=== PATIENT | male | born 1975 | race Caucasian/White ===

== ENCOUNTER → 2016-09-07 | Outpatient (CLI) | payer BC ==
[2016-09-07 16:53] LABS: ALT 44 U/L (21-72); AST 29 U/L (17-59); Anion Gap 12 mmol/L; Blood Urea Nitrogen 11 mg/dL (9-20); Calcium 9.9 mg/dL (8.4-10.2); Carbon Dioxide 29 mmol/L (22-30); Chloride 101 mmol/L (98-107); Creatine Kinase 57 U/L (55-170); Glucose 86 mg/dL (74-99); Iron 115 ug/dL (49-181); LDH 425 U/L (313-618); Non-African American GFR(MDRD) >60 (>60 ml/min/1.73 sqM); Potassium 3.9 mmol/L (3.5-5.1); Sodium 142 mmol/L (137-145)
[2016-09-07 17:03] LABS: % Iron Saturation 31.3 % (20-50); Rheumatoid Factor, Qnt <9 IU/mL (<12); Total Iron Binding Capacity 368 ug/dL (261-462)
== END | disposition home or self-care (01) ==
LOC: LABWHC1 15:57
PROVIDERS: ATTEND Internal Medicine
DX: E29.1 Testicular hypofunction (principal); E78.4 Other hyperlipidemia; R07.9 Chest pain, unspecified
CPT/HCPCS: 36415; 80048; 82085; 82550; 82728; 83540; 83550; 83615; 84450; 84460; 84484; 85379; 86038; 86431

== ENCOUNTER → 2017-03-25 | Outpatient (CLI) | payer BC ==
--- NOTE | 2017-03-25 16:18 | CT ---
EXAMINATION TYPE: CT heart w calcium score DATE OF EXAM: 03/25/2017 COMPARISON: NONE HISTORY: Screening for cardiovascular disorder. 213.9 CT DLP: 51.9 mGycm Automated exposure control for dose reduction was used. CT CALCIUM SCORING Coronary calcium is a marker for plaque (fatty deposits) in a blood vessel or atherosclerosis (harden ing of the arteries). The presence and amount of calcium detected in a coronary artery by the CT sca n, indicates the presence and amount of atherosclerotic plaque. These calcium deposits appear years before the development of heart disease symptoms such as chest pain and shortness of breath. A calcium score is computed for each of the coronary arteries based upon the volume and density of th e calcium deposits. This can be referred to as your calcified plaque burden. It does not correspond directly to the percentage of narrowing in the artery but does correlate with the severity of the un derlying coronary atherosclerosis. PROCEDURE TECHNIQUE - Prospective Gating was used. Slice thickness: 3mm. Density threshold (HU): 130, Pixel threshold: 3, Algorithm: discrete. RESULTS Region: LM Calcium Score ([place]): 0 Volume (mm3): 0 Mass (g): 0 Region: RCA Calcium Score ([place]): 0 Volume (mm3): 0 Mass (g): 0 Region: LAD Calcium Score ([place]): 0 Volume (mm3): 0 Mass (g): 0 Region: CX Calcium Score ([place]): 0 Volume (mm3): 0 Mass (g): 0 Region: PDA Calcium Score ([place]): 0 Volume (mm3): 0 Mass (g): 0 Total: Calcium Score ([place]): 0 Volume (mm3): 0 Mass (g): 0 TOTAL CALCIUM SCORE: 0 OTHER: 0 IMPRESSION: Calcium Score: 0 Implication: No identifiable plaque. Risk of Coronary Artery Disease: Very low, generally less than 5%.
== END | disposition home or self-care (01) ==
LOC: RADCTMAIN 15:41
PROVIDERS: ATTEND Internal Medicine Interventional Cardiology
DX: R07.89 Other chest pain (principal)
CPT/HCPCS: 75571

== ENCOUNTER → 2019-09-06 | Outpatient (CLI) | payer BC ==
--- NOTE | 2019-09-06 08:36 | US ---
EXAMINATION TYPE: US abdomen complete DATE OF EXAM: 09/06/2019 COMPARISON: NONE CLINICAL HISTORY: R10.9 Abdominal Pain. Pain EXAM MEASUREMENTS: Liver Length: 16.8 cm Gallbladder Wall: .3 cm CBD: .3 cm Spleen: 9.9 cm Right Kidney: 10.5 x 3.6 x 5.3 cm Left Kidney: 10.5 x 4.9 x 4.6 cm Pancreas: Obscured by bowel gas Liver: wnl Gallbladder: wnl Evidence for sonographic Nicholson's sign: No CBD: wnl Spleen: wnl Right Kidney: wnl Left Kidney: wnl Upper IVC: wnl Abd Aorta: wnl IMPRESSION: 1. Normal abdomen ultrasound
== END ==
LOC: RADUSWWP 07:03
PROVIDERS: ATTEND Internal Medicine
DX: R10.9 Unspecified abdominal pain (principal)
CPT/HCPCS: 76700

== ENCOUNTER 2020-06-25 09:00 | Day surgery (SDC) | payer BC ==
[2020-06-24 08:24] VITALS: BMI 23.6
[~2020-06-25 09:00] MED LIST: LACTATED RINGERS 1,000 ML IV SCH
[2020-06-25] MEDS ORDERED: LACTATED RINGERS 1,000 ML IV ONE ×2 (09:12)
[2020-06-25 09:30] VITALS: RESP 16; TEMP 97.7
[2020-06-25] MEDS ORDERED: PROPOFOL 10 MG/ML 20 ML VIAL IV ONE (09:58)
--- NOTE | 2020-06-25 10:01 | P.GSHP ---
History of Present Illness H&P Date: 06/25/20 Chief Complaint: GERD 45-year-old male with history of acid reflux and mild left upper quadrant pain for the last year or so. Symptoms fairly well controlled with daily antiacid therapy. No dysphagia. No rectal bleeding or melena. No previous workup. Past Medical History Past Medical History: GERD/Reflux History of Any Multi-Drug Resistant Organisms: None Reported Past Surgical History: Orthopedic Surgery Additional Past Surgical History / Comment(s): RIGHT SHOULDER SX Past Anesthesia/Blood Transfusion Reactions: No Reported Reaction Smoking Status: Never smoker - Past Family History Father Family Medical History: Cancer Medications and Allergies Home Medications Medication Instructions Recorded Confirmed Type Omeprazole 20 mg PO DAILY 06/24/20 06/25/20 History Allergies Allergy/AdvReac Type Severity Reaction Status Date / Time No Known Allergies Allergy Verified 06/25/20 09:14 Surgical - Exam Vital Signs Temp Pulse Resp BP Pulse Ox 97.7 F 80 16 120/80 98 06/25/20 09:13 06/25/20 09:13 06/25/20 09:13 06/25/20 09:13 06/25/20 09:13 Physical exam: General: Well-developed, well-nourished HEENT: Normocephalic, sclerae nonicteric Abdomen: Nontender, nondistended Extremities: No edema Neuro: Alert and oriented Assessment and Plan (1) GERD (gastroesophageal reflux disease) Narrative/Plan: Will proceed with upper endoscopy at this time. Current Visit: Yes Status: Acute Code(s): K21.9 - GASTRO-ESOPHAGEAL REFLUX DISEASE WITHOUT ESOPHAGITIS SNOMED Code(s): 953104366
--- NOTE | 2020-06-25 10:10 | P.PCN ---
Date of Procedure: 06/25/20 Procedure(s) Performed: Preoperative Dx: GERD Postoperative Dx: Minimal gastritis, moderate size hiatal hernia Procedure: EGD with Bx Anesthesia: Sedation Endoscopist: Dr. Leo Specimens: Antrum Endoscopic Procedure: The patient was on the endoscopy table in the left decubitus position. The Olympus gastroscope was inserted into the oropharynx and passed under direct visualization to the region of the third portion of the duodenum. From that point the scope was slowly withdrawn inspecting all surfac es carefully. There were no neoplastic inflammatory or polypoid lesions throughout the duodenum. The pylorus was widely patent. The stomach was carefully inspected. There was minimal gastritis present. A biopsy of the antrum took place to rule out H. pylori. Retroflexion revealed a moderate sized hiatal hernia. The GE junction was present 2-3 cm above the diaphragmatic hiatus. The esophagus was then carefully examined. There were no neoplastic inflammatory or polypoid lesions throughout the visualized esophagus. The patient was then taken to the recovery room in stable condition per anesthesia guidelines. Recommendations: Await biopsy results. Continue antiacid therapy. We'll discuss endoscopic findings with the patient and his family. Surgical options will be reviewed.
[2020-06-25 10:33] VITALS: BP 119/71; PULSE 71
== END 2020-06-25 11:01 | disposition home or self-care (01) ==
LOC: ORWHC2ENDO 09:00
PROVIDERS: ATTEND Surgery
DX: K29.50 Unspecified chronic gastritis without bleeding (principal); K44.9 Diaphragmatic hernia without obstruction or gangrene; K21.9 Gastro-esophageal reflux disease without esophagitis; Z79.899 Other long term (current) drug therapy; Z98.890 Other specified postprocedural states; Z80.9 Family history of malignant neoplasm, unspecified
CPT/HCPCS: 88305; 43239; J2704

== ENCOUNTER 2021-07-06 08:19 | Emergency (ER) | payer BC ==
--- NOTE | 2021-07-06 08:32 | ED ---
General Adult HPI - General Stated complaint: covid+/wants antibodies Time Seen by Provider: 07/06/21 08:21 Source: patient, RN notes reviewed Mode of arrival: ambulatory Limitations: no limitations - History of Present Illness Initial comments: This a 46-year-old male presents emergency Department chief complaint covid 19. Patient tested positive yesterday for COVID-19 his symptoms started 1 day prior. He has mild cough cold-like symptoms since he does have some diffuse body aches, fever or chills. No GI symptoms patient states that his significant other also tested positive for COVID-19. - Related Data Home Medications Medication Instructions Recorded Confirmed Omeprazole 20 mg PO DAILY 06/24/20 06/25/20 Allergies Allergy/AdvReac Type Severity Reaction Status Date / Time No Known Allergies Allergy Verified 06/25/20 09:14 Review of Systems ROS Statement: Those systems with pertinent positive or pertinent negative responses have been documented in the HPI. ROS Other: All systems not noted in ROS Statement are negative. General Exam Limitations: no limitations General appearance: alert, in no apparent distress Head exam: Present: atraumatic, normocephalic, normal inspection Eye exam: Present: normal appearance, PERRL, EOMI. Absent: scleral icterus, conjunctival injection, periorbital swelling ENT exam: Present: normal exam, normal oropharynx, mucous membranes moist, TM's normal bilaterally Neck exam: Present: normal inspection, full ROM. Absent: tenderness, meningismus, lymphadenopathy Respiratory exam: Present: normal lung sounds bilaterally. Absent: respiratory distress, wheezes, rales, rhonchi, stridor Cardiovascular Exam: Present: regular rate, normal rhythm, normal heart sounds. Absent: systolic murmur, diastolic murmur, rubs, gallop, clicks Course Vital Signs 07/06/21 07/06/21 08:38 10:13 Temperature 98.9 F 98.0 F Pulse Rate 71 73 Respiratory 19 18 Rate Blood Pressure 115/80 127/82 O2 Sat by Pulse 98 98 Oximetry Disposition Clinical Impression: COVID-19 Disposition: HOME SELF-CARE Condition: Stable Instructions (If sedation given, give patient instructions): Coronavirus Disease 2019 (COVID-19) Additional Instructions: Please return to the Emergency Department if symptoms worsen or any other concerns. Is patient prescribed a controlled substance at d/c from ED?: No Referrals: Tahir Howell MD [Primary Care Provider] - 1-2 days
[2021-07-06] MEDS ORDERED: CASIRIVIMAB/IMDEVIMAB (EUA) 1,200 MG in SODIUM CHLORIDE 0.9% 100 ML IVPB ONE (09:00)
[2021-07-06] MEDS ORDERED: SODIUM CHLORIDE 0.9% 50 ML IVPB ONE (09:30)
[2021-07-06 10:15] VITALS: BP 127/82; PULSE 73; RESP 18; TEMP 98
== END 2021-07-06 10:15 | disposition home or self-care (01) ==
LOC: EC 08:19
DX: U07.1 COVID-19 (principal)
CPT/HCPCS: 99283 ×2; M0243; Q0243

== ENCOUNTER 2023-07-13 07:41 | Day surgery (SDC) | payer BC ==
[2023-05-06 15:44] VITALS: BMI 23.2
[2023-07-13 08:26] VITALS: TEMP 97.8
[2023-07-13] MEDS ORDERED: LIDOCAINE 1% INJ 10MG/ML (20 ML MDV) ONE (08:45)
[2023-07-13] MEDS ORDERED: PROPOFOL 10 MG/ML 20 ML VIAL IV ONE (08:45)
--- NOTE | 2023-07-13 08:49 | P.GSHP ---
History of Present Illness H&P Date: 07/13/23 Chief Complaint: GERD, screening 48-year-old male here for upper and lower endoscopy. Patient had an EGD 3 years ago showing moderate sized hiatal hernia. No bowel complaints. No family history of colon cancer. GERD symptoms well-controlled with an acid Past Medical History Past Medical History: GERD/Reflux Additional Past Medical History / Comment(s): HIATAL HERNIA History of Any Multi-Drug Resistant Organisms: None Reported Past Surgical History: Orthopedic Surgery Additional Past Surgical History / Comment(s): RT SHOULDER BROKEN ORIF/REMOVED. EGD Past Anesthesia/Blood Transfusion Reactions: No Reported Reaction, Motion Sickness Past Psychological History: No Psychological Hx Reported Smoking Status: Never smoker Past Alcohol Use History: Occasional Past Drug Use History: None Reported - Past Family History Father Family Medical History: Cancer Medications and Allergies Home Medications Medication Instructions Recorded Confirmed Type Omeprazole 40 mg PO DAILY 05/05/23 07/13/23 History Allergies Allergy/AdvReac Type Severity Reaction Status Date / Time No Known Allergies Allergy Verified 07/13/23 07:53 Surgical - Exam Vital Signs Temp Pulse Resp BP Pulse Ox 97.8 F 95 18 142/97 98 07/13/23 07:54 07/13/23 07:54 07/13/23 07:54 07/13/23 07:54 07/13/23 07:54 Physical exam: General: Well-developed, well-nourished HEENT: Normocephalic, sclerae nonicteric Abdomen: Nontender, nondistended Extremities: No edema Neuro: Alert and oriented Assessment and Plan (1) GERD (gastroesophageal reflux disease) Narrative/Plan: Will proceed with upper and lower endoscopy Current Visit: No Status: Acute Code(s): K21.9 - GASTRO-ESOPHAGEAL REFLUX DISEASE WITHOUT ESOPHAGITIS SNOMED Code(s): 792201887
--- NOTE | 2023-07-13 09:07 | P.PCN ---
Date of Procedure: 07/13/23 Procedure(s) Performed: IPREOPERATIVE DIAGNOSIS: GERD, screening POSTOPERATIVE DIAGNOSIS: Gastritis, hiatal hernia, distal esophagitis, normal colonoscopy PROCEDURE: 1. EGD with biopsy 2. Colonoscopy ANESTHESIA: MAC SURGEON: Luis Leo M.D. SPECIMENS: Antrum, distal esophagus ENDOSCOPIC PROCEDURE: The patient was on the endoscopy table in the left decubitus position. The Olympus gastroscope was inserted into the oropharynx and passed under direct visualization to the region of the third portion of the duodenum. From that point the scope was slowly withdrawn inspecting all surfaces carefully. There were no neoplastic inflammatory or polypoid lesions throughout the duodenum. The pylorus was widely patent. The stomach was carefully inspected. There was a mild gastritis. A biopsy of the antrum took place to rule out H. pylori. Retroflexion revealed a small the medium sized hiatal hernia. The GE junction was present 2.5 cm above the diaphragmatic hiatus. There was mild distal esophagitis and a biopsy of the mildly inflamed mucosa was taken. The remainder of the esophagus was then carefully examined. There were no neoplastic inflammatory or polypoid lesions throughout the visualized esophagus. The patient was kept on the endoscopy table in the left decubitus position. The Olympus colonoscope was inserted into the anus and passed under direct visualization to the base of the cecum. The appendiceal orifice was visualized. From that point the scope was slowly withdrawn inspecting all surfaces carefully. There were no neoplastic inflammatory or polypoid lesions throughout the cecum, ascending, transverse, descending, sigmoid and rectum. There was no visible diverticulosis noted. Digital rectal examination was normal. The patient was taken to the recovery room in stable condition per anesthesia guidelines. RECOMMENDATIONS: Await biopsies results. Continue antiacid therapy. Repeat colonoscopy in 10 years.
[2023-07-13 09:23] VITALS: RESP 16
[2023-07-13 09:52] VITALS: BP 126/86; PULSE 86
== END 2023-07-13 09:54 | disposition home or self-care (01) ==
LOC: ORWHC2ENDO 07:41
PROVIDERS: ATTEND Surgery
DX: Z12.11 Encounter for screening for malignant neoplasm of colon (principal); K21.00 Gastro-esophageal reflux disease with esophagitis, without bleeding; K21.9 Gastro-esophageal reflux disease without esophagitis; K29.50 Unspecified chronic gastritis without bleeding; K44.9 Diaphragmatic hernia without obstruction or gangrene; F10.90 Alcohol use, unspecified, uncomplicated; Z98.890 Other specified postprocedural states; Z79.899 Other long term (current) drug therapy
CPT/HCPCS: 45378; 88305; 88313; 43239; J2001; J2704

== ENCOUNTER → 2023-12-16 | Outpatient (CLI) | payer BC ==
--- NOTE | 2023-12-22 18:56 | CT ---
EXAMINATION TYPE: CT abdomen pelvis w con CT DLP: 967 mGycm, Automated exposure control for dose reduction was used. DATE OF EXAM: 12/16/2023 2:03 PM COMPARISON: None. CLINICAL INDICATION:Male, 48 years old with history of R10.13 EPIGASTRIC PAIN; LUQ PAIN AND DISCOMFOR T WITH INDIGESTION. TECHNIQUE: Axial CT abdomen pelvis w con; Sagittal and coronal reformats were created on a separate workstation. Contrast used:100ML mL of Isovue 300 with IV Contrast, Oral contrast used: with Oral Contrast (none if empty) FINDINGS: LOWER CHEST: Unremarkable ABDOMEN LIVER: Unremarkable GALLBLADDER AND BILE DUCTS: Unremarkable. PANCREAS: Unremarkable. SPLEEN: Unremarkable. ADRENAL GLANDS: Unremarkable. KIDNEYS AND URETERS: No evidence of hydronephrosis or renal calculus. The ureters are unremarkable. PELVIS BLADDER: Unremarkable REPRODUCTIVE: Unremarkable. ABDOMEN & PELVIS STOMACH AND BOWEL: Stomach and duodenum are unremarkable. No evidence of bowel obstruction. PERITONEUM/RETROPERITONEUM: No evidence of pneumoperitoneum or free fluid. VASCULATURE: No evidence of aortic aneurysm. MUSCULOSKELETAL: No acute osseous abnormalities LYMPH NODES: No gross evidence for lymphadenopathy. SOFT TISSUE/ABDOMINAL WALL: Unremarkable IMPRESSION: 1. No acute process.
== END | disposition home or self-care (01) ==
LOC: RADCTMAIN 12:09
PROVIDERS: ATTEND Internal Medicine
DX: R10.13 Epigastric pain (principal)
CPT/HCPCS: 74177; Q9967